=== PATIENT | male | born 2000 | race African-American/Black ===

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

== ENCOUNTER 2018-01-28 07:27 | Day surgery (SDC) | payer BC ==
[2018-01-28] MEDS ORDERED: LR 1,000 ML IV ×2 (08:00→10:45)
[2018-01-28] MEDS ORDERED: PROPOFOL 200 MG/20 ML VIAL As Ordered (08:20)
[2018-01-28] MEDS ORDERED: LIDOCAINE 2% INJ 100 MG/5 ML SDV (FOR ANES.) As Ordered (08:41)
[2018-01-28] MEDS ORDERED: fentaNYL 100 MCG/2 ML INJECTION (J3010) As Ordered (08:41)
[2018-01-28] MEDS ORDERED: MIDAZOLAM INJ 2 MG/2 ML VIAL (J2250) As Ordered (08:41)
[2018-01-28] MEDS: EPINEPHrine 1MG/ML INJ 30ML MD-VIAL As Ordered (08:42)
[2018-01-28] MEDS: METHYLENE BLUE 0.5% (5MG/ML) 10 ML AMP (PROVAYBLUE)(Q9968 PER 1MG) As Ordered (08:42)
[2018-01-28] MEDS ORDERED: ONDANSETRON 4MG/2ML VIAL (J2405) As Ordered (09:06)
[2018-01-28] MEDS ORDERED: dexameTHASONE 4 MG/ML 1ML VIAL (J1100) As Ordered (09:06)
[2018-01-28] MEDS: BACITRACIN OINT 30GM As Ordered (09:58)
[2018-01-28] MEDS: LIDOCAINE W/EPINEPHRINE 1% 20ML VIAL As Ordered (10:07)
[2018-01-28] MEDS ORDERED: ACETAMINOPHEN/CODEINE 300MG/30MG 12.5 ML UDC PO (10:45)
[2018-01-28] MEDS ORDERED: ONDANSETRON 4MG/2ML VIAL (J2405) IV (10:45)
[2018-01-28] MEDS: PERCOCET 5MG/325MG TAB PO (10:46)
== END 2018-01-28 12:20 | disposition home or self-care (01) ==
LOC: M SDC 07:27
DX: L72.3 Sebaceous cyst (principal); J45.909 Unspecified asthma, uncomplicated
CPT/HCPCS: 11446

== ENCOUNTER → 2020-10-26 | Outpatient (REF) | payer BC, MEDICAID ==
[~2020-10-26] MED LIST: MULT1TAB10 PO
== END ==
LOC: M SFHCCLAY 11:29
PROVIDERS: ATTEND Family Medicine
DX: Z00.00 Encounter for general adult medical examination without abnormal findings (principal); E55.9 Vitamin D deficiency, unspecified

== ENCOUNTER → 2024-01-24 | Outpatient (REF) | payer BC, MEDICAID ==
[2024-01-24 17:26] LABS: ALBUMIN 4.2 G/DL (3.2-5.2); ALKALINE PHOSPHATASE 75 U/L (46-116); ALT/SGPT 42 U/L (7.0-40); AST/SGOT 14 U/L (<34); BILIRUBIN,TOTAL 0.4 MG/DL (0.3-1.2); BLOOD UREA NITROGEN 18 MG/DL (9-23); CALCIUM LEVEL 9.6 MG/DL (8.5-10.1); CARBON DIOXIDE LEVEL 32 MMOL/L (20-31); CHLORIDE LEVEL 105 MMOL/L (98-107); CHOLESTEROL LEVEL 167 MG/DL (<200); CHOLESTEROL RISK RATIO 5.01 (<5); CREATININE FOR GFR 1.04 MG/DL (0.70-1.30); GLOMERULAR FILTRATION RATE > 60.0 (>60); GLUCOSE, FASTING 91 MG/DL (60-100); HDL CHOLESTEROL 33.3 MG/DL (>40); LDL CHOLESTEROL 102.1 MG/DL (<100); NON-HDL-C 133.7 MG/DL; POTASSIUM SERUM 4.3 MMOL/L (3.5-5.1); SODIUM LEVEL 140 MMOL/L (136-145); TOTAL PROTEIN 7.5 G/DL (5.7-8.2); TRIGLYCERIDES LEVEL 158 MG/DL (<150)
[2024-01-24 18:54] LABS: HEMOGLOBIN A1c 5.3 % (4.0-6.0)
== END ==
LOC: M SFHCCLAY 11:24
PROVIDERS: ATTEND Nurse Practitioner Family
DX: Z00.00 Encounter for general adult medical examination without abnormal findings (principal); J45.20 Mild intermittent asthma, uncomplicated; E55.9 Vitamin D deficiency, unspecified; K21.9 Gastro-esophageal reflux disease without esophagitis; G80.9 Cerebral palsy, unspecified; F79 Unspecified intellectual disabilities; F84.0 Autistic disorder

== ENCOUNTER → 2025-01-27 | Outpatient (REF) | payer BC, MEDICAID ==
[2025-01-27 20:28] LABS: ALT/SGPT 30.0 U/L (7.0-40); AST/SGOT 20.0 U/L (<34); CALCIUM LEVEL 9.3 MG/DL (8.5-10.1); CARBON DIOXIDE LEVEL 30.0 MMOL/L (20-31); CHLORIDE LEVEL 103.0 MMOL/L (98-107); CREATININE FOR GFR 1.18 MG/DL (0.70-1.30); GLOMERULAR FILTRATION RATE 87.3 (>60); POTASSIUM SERUM 4.1 MMOL/L (3.5-5.1); SODIUM LEVEL 141.0 MMOL/L (136-145)
== END ==
LOC: M SFHCCLAY 13:24
PROVIDERS: ATTEND Nurse Practitioner Family
DX: R74.8 Abnormal levels of other serum enzymes (principal)